=== PATIENT | female | born 1990 | race Caucasian/White ===

== ENCOUNTER → 2021-10-22 09:00 | Outpatient (BNVA) | payer MEDICAID, SELFPAY | PROVIDERS: Family Provider Family Medicine; Visit Provider Nurse Practitioner Women's Health | DX: N92.6 Irregular menstruation, unspecified (principal); O21.9 Vomiting of pregnancy, unspecified; Z3A.00 Weeks of gestation of pregnancy not specified | CPT/HCPCS: 81025 ==

== ENCOUNTER → 2021-11-05 09:25 | Outpatient (BNVA) | payer BC, MEDICAID, SELFPAY | PROVIDERS: Family Provider Family Medicine; Visit Provider Obstetrics & Gynecology | DX: Z34.90 Encounter for supervision of normal pregnancy, unspecified, unspecified trimester (principal) | CPT/HCPCS: 80307; 84315; 85027; 86592; 86762; 86803; 86850; 86900; 87086; 87340 ==

== ENCOUNTER → 2021-11-18 09:05 | Outpatient (BNVA) | payer BC, MEDICAID, SELFPAY | PROVIDERS: Family Provider Family Medicine; Visit Provider Obstetrics & Gynecology | DX: Z34.90 Encounter for supervision of normal pregnancy, unspecified, unspecified trimester (principal) | CPT/HCPCS: 84315; 87491; 87591; 87624 ==

== ENCOUNTER 2022-02-10 10:08 | Outpatient (CLI) | payer BC, MEDICAID, SELFPAY ==
--- NOTE | 2022-02-10 10:00 | US_ITS ---
WS: [id number] LIMITED OBSTETRICAL ULTRASOUND HISTORY: Z36.2 - Encounter for other screening follow-up COMPARISON: 10/31/2021 Presentation: Cephalic. Cervix: Closed and normal length. Placenta: Anterior, no previa or abruption. Grade: 1 HEART: heart rate was not obtained. Four-chamber heart and activity was noted on cine loops. Ou tflow tract. Negative. measurements: BPD = 5.7 cm = 23w4d HC = 21.5 cm = 23w4d AC = 18.8 cm = 23w4d FL = 4.1 cm = 23w3d FRANCY: 14.0 cm EFW: 603 g; 52nd %. AGA by ultrasound: 23w4d SCOTT by ultrasound: 06/05/2022 As compared to the first trimester ultrasound the fetus is measuring 10 days smaller than expected. Limited profile. US/[place] [id number] IMPRESSION: 1. Single intrauterine gestation of 23 weeks 4 days with an EDC of 06/05/2022. No growth asymmetry. 2. No cardiac activity or M-mode tracing was performed on this examination. Re altime cine loop does demonstrate normal cardiac activity.
== END 2022-02-10 10:09 | disposition home or self-care (01) ==
LOC: RAD 10:09
PROVIDERS: Family Provider Family Medicine; Visit Provider Obstetrics & Gynecology
DX: Z36.2 Encounter for other antenatal screening follow-up (principal); Z3A.23 23 weeks gestation of pregnancy
CPT/HCPCS: 76805; 76816

== ENCOUNTER → 2022-03-16 08:50 | Outpatient (BNVA) | payer BC, MEDICAID, SELFPAY | PROVIDERS: Family Provider Family Medicine; Visit Provider Obstetrics & Gynecology | DX: Z34.90 Encounter for supervision of normal pregnancy, unspecified, unspecified trimester (principal) | CPT/HCPCS: 82950; 84315; 85025 ==

== ENCOUNTER → 2022-04-27 08:39 | Outpatient (BNVA) | payer BC, MEDICAID, SELFPAY | PROVIDERS: Family Provider Family Medicine; Visit Provider Obstetrics & Gynecology | DX: O09.899 Supervision of other high risk pregnancies, unspecified trimester (principal); Z14.1 Cystic fibrosis carrier; Z30.2 Encounter for sterilization | CPT/HCPCS: 84315; 85025 ==

== ENCOUNTER → 2022-05-11 08:41 | Outpatient (BNVA) | payer BC, MEDICAID, SELFPAY | PROVIDERS: Family Provider Family Medicine; Visit Provider Obstetrics & Gynecology | DX: Z34.90 Encounter for supervision of normal pregnancy, unspecified, unspecified trimester (principal) | CPT/HCPCS: 84315; 87081 ==

== ENCOUNTER → 2022-05-18 09:20 | Outpatient (BNVA) | payer BC, MEDICAID, SELFPAY | PROVIDERS: Family Provider Family Medicine; Visit Provider Obstetrics & Gynecology | DX: Z34.90 Encounter for supervision of normal pregnancy, unspecified, unspecified trimester (principal) | CPT/HCPCS: 84315; 88304 ==

== ENCOUNTER 2022-05-29 19:15 | Outpatient (CLI) | payer BC, MEDICAID, SELFPAY ==
[2022-05-29 19:30] VITALS: BP 121/75; PULSE 90
[2022-05-29 19:38] VITALS: BMI 29.6
[2022-05-29 19:40] VITALS: RESP 16
[2022-05-29 19:48] LABS: Actim Prom Negative
[2022-05-29 19:55] LABS: Bilirubin Urine 1+ (Negative); Blood Urine Neg (Negative); Glucose Urine UA Norm (Normal); Ketones Urine 3+ (Negative); Leukocyte Esterase Urine 2+ (Negative); Nitrate Urine Negative (Negative); Protein Urine Neg (Negative); RBC Urine 0-4 /hpf (0-2); Specific Gravity, Urine 1.025 (1.005-1.030); Urine Appearance Hazy (CLEAR); Urine Color Yellow (Yellow); Urobilinogen Urine Norm (Negative); pH Urine 5 (5-7)
[2022-05-29 19:56] LABS: Add Urine Culture? Yes; Bacteria Urine 1+ /hpf; Squamous Epithelial Cell Urine 40-55 /hpf (0-5)
[2022-05-29] MEDS: dextrose 5%-lactated ringers 1,000 ML 999 ML IV ×2 (20:08→20:31)
[2022-05-29 21:02] VITALS: BP 110/58; PULSE 95
[2022-05-29 21:30] LABS: Glucose Urine UA 4+ (Normal); Ketones Urine 2+ (Negative); Specific Gravity, Urine 1.015 (1.005-1.030); Urine Appearance Clear (CLEAR); Urine Color Yellow (Yellow); pH Urine 6 (5-7)
[2022-05-29 21:32] LABS: Add Urine Culture? No; Bilirubin Urine Neg (Negative); Blood Urine Neg (Negative); Leukocyte Esterase Urine Negative (Negative); Nitrate Urine Negative (Negative); Protein Urine Neg (Negative); RBC Urine 0-4 /hpf (0-2); Urobilinogen Urine Norm (Negative)
== END 2022-05-29 21:45 | disposition home or self-care (01) ==
LOC: OPOB 19:21 → OBGYN 19:22
PROVIDERS: Family Provider Family Medicine; Visit Provider Obstetrics & Gynecology
DX: O26.899 Other specified pregnancy related conditions, unspecified trimester (principal); Z3A.00 Weeks of gestation of pregnancy not specified; R10.9 Unspecified abdominal pain
CPT/HCPCS: 36415; 59025; 81001; 84112; 87086; 99211; J7121

== ENCOUNTER 2022-06-02 22:20 | Inpatient (IN) | payer BC, MEDICAID, SELFPAY ==
[2022-06-02] VITALS (7 sets, daily range): BP systolic 93–107; BP diastolic 53–67; PULSE 92–109; RESP 16; TEMP 36.7; BMI 30.2
[2022-06-02 14:34] LABS: Basophils % 0.4 %; Eosinophils # 0.1 10^3/uL (0.0-0.8); Eosinophils % 1.3 %; Hematocrit 32.4 % (37.0-47.0); Hemoglobin 10.6 g/dL (11.5-15.3); Lymphocytes # 1.8 10^3/uL (0.8-4.8); Lymphocytes % 16.2 %; Mean Corpuscular HGB Conc 32.7 g/dL (30.0-36.0); Mean Corpuscular Hemoglobin 29.2 pg (28.0-34.0); Mean Corpuscular Volume 89.3 fl (81-99); Mean Platelet Volume 11.3 fL (7.4-10.4); Monocytes # 0.6 10^3/uL (0.2-0.9); Monocytes % 5.4 %; Neutrophils # 8.41 10^3/uL (1.8-7.7); Neutrophils % 75.8 %; Nucleated Red Blood Cells % 0 %; Platelet Count 304 10^3/cmm (130-400); Red Blood Count 3.63 10^6/uL (4.1-5.3); Red Cell Distribution Width 13.2 % (12.1-15.1); White Blood Count 11.1 10^3/uL (4.0-10.0)
[2022-06-02] MEDS: dextrose 5%-lactated ringers 1,000 ML 999 ML IV (23:20)
[2022-06-02] MEDS: oxytocin 30 UNIT/500 ML BAG IV (23:50)
[2022-06-03] VITALS (78 sets, daily range): BP systolic 86–132; BP diastolic 50–76; PULSE 68–120; RESP 16–17; O2SAT 99
[2022-06-03] MEDS: dextrose 5%-lactated ringers 1,000 ML 125 ML IV (03:48)
[2022-06-03] MEDS: fentaNYL 50 mcg/mL INJ 2mL IVP ×4 (07:02→10:40)
[2022-06-03] MEDS: lactated ringers 1,000 ML 999 ML IV (11:25)
--- NOTE | 2022-06-03 11:27 | PM.OPHPUD ---
Labor & Delivery H&P Update Date of Procedure: June 03, 2022 Date H&P Performed: 06/01/22 H&P update information: I have reviewed H&P completed within last 30 days, I have examined patient prior to procedure and No changes to prior documentation Admission Diagnosis: Related Problem List Diagnoses (1) Request for sterilization: (2) Supervision of normal :
[2022-06-03] MEDS: miSOPROStol 200 mcg Tablet 800 MCG PR (11:57)
--- NOTE | 2022-06-03 12:20 | PM.DELIVERY ---
Delivery Note: Date of delivery: June 03, 2022 Pre-delivery diagnoses: iup@ 39 weeks 4 days Post-delivery diagnoses: same-delivered Procedure: Delivering Physician: Senait Estimated blood loss (mL): 100 Findings: term male in the cephalic presentation Pre-Delivery Course: The patient was admitted for induction of labor at term. She received pitocin until she was having a regular contraction pattern. She had AROM and progressed to complete cervical dilation. Pitocin was stopped and she began to push. Delivery: The patient had complete cervical dilation and began to push. The head delivered in the MOJGAN position over an intact perineum under no anesthesia. The nose and mouth were bulb suctioned. The shoulders and body delivered atraumatically. The baby was placed onto the mother's abdomen. The cord was clamped and cut. Cord blood was obtained. The placenta delivered spontaneously. It was inspected and found to be intact. Inspection of the perineum revealed no laceration and no repair required. Estimated blood loss 100 mL. Apgars on baby were 8 at 1 minute and 9 at 5 minutes. Weight of baby is 9 pounds 12 ounces. Mother and baby were stable post delivery. History History History 4 Term 3 0 Miscarriages/Ectopic 0 Living Children 3 Coding Level of Care Code Acute [employer] Receiving [employer]her for Chg Sabrina
[2022-06-03] MEDS: ondansetron 2 mg/ML SDV 2 mL 4 MG IVP (13:09)
[2022-06-03] MEDS: benzocaine-menthol 78 gm Canister 1 SPRAY TOPICAL (14:04)
[2022-06-03] MEDS: lanolin oint 7 gm 1 APPLIC TOPICAL (14:05)
[2022-06-03] MEDS: ibuprofen 800 mg tablet PO ×2 (14:52→20:05)
[2022-06-03] MEDS: docusate sodium 100 mg Capsule PO (20:06)
[2022-06-04 00:09] LABS: Hematocrit 23.7 % (37.0-47.0); Hemoglobin 7.8 g/dL (11.5-15.3); Mean Corpuscular HGB Conc 32.9 g/dL (30.0-36.0); Mean Corpuscular Hemoglobin 29.8 pg (28.0-34.0); Mean Corpuscular Volume 90.5 fl (81-99); Platelet Count 296 10^3/cmm (130-400); Red Blood Count 2.62 10^6/uL (4.1-5.3); Red Cell Distribution Width 13.6 % (12.1-15.1); White Blood Count 13.2 10^3/uL (4.0-10.0)
[2022-06-04 02:25] VITALS: BP 99/53; PULSE 71
[2022-06-04 03:55] VITALS: BP 95/59; PULSE 75
--- NOTE | 2022-06-04 08:06 | PM.DCS ---
Discharge Providers Date of Admission: 06/02/22 22:20 Date of Discharge: June 04, 2022 Attending Provider at Admission: Ava Sapp MD Attending Provider at Discharge: Ava Sapp MD Diagnoses at Discharge Discharge Diagnosis (1) Request for sterilization: Status: Acute (2) Supervision of normal : Status: Acute Reason for Visit Reason for Visit: induction Hospital Course Hospital Course The patient was admitted for induction at term. She had spontaneous delivery of a term male . She did well and was ready for discharge on day #1 Physical Exam Narrative: The patient is doing well. No concerns today. Const: COMMON NORMALS: no acute distress, average body habitus, patient oriented x3, no limitations, healthy appearing, alert and well nourished GENERAL APPEARANCE: cooperative, comfortable, well kempt and well developed ORIENTATION/CONSCIOUSNESS: Yes awake, Yes oriented to person, Yes oriented to place and Yes oriented to time Resp: COMMON NORMALS: normal respiratory effort EFFORT & INSPECTION: Yes able to speak in complete sentences GI: COMMON NORMALS: Soft to palpation and non-tender PALPATION: Yes Soft to palpation Extremity: COMMON NORMALS: no calf tenderness Neuro: COMMON NORMALS: patient oriented x3 SENSORIUM/ORIENTATION: Yes alert, Yes oriented to person, Yes oriented to place and Yes oriented to time Psych: COMMON NORMALS: mental status grossly normal, Normal thought process present, cooperative, normal affect and speech normal APPEARANCE: Yes well kempt SPEECH: Yes normal speech THOUGHT PROCESS: Normal thought process present Discharge Data Studies Completed and Pending Laboratory Results WBC 13.2 10^3/uL (4.0-10.0) H 06/03/22 23:56 RBC 2.62 10^6/uL (4.1-5.3) L 06/03/22 23:56 Hgb 7.8 g/dL (11.5-15.3) L 06/03/22 23:56 Hct 23.7 % (37.0-47.0) L 06/03/22 23:56 MCV 90.5 fl (81-99) 06/03/22 23:56 MCH 29.8 pg (28.0-34.0) 06/03/22 23:56 MCHC 32.9 g/dL (30.0-36.0) 06/03/22 23:56 RDW 13.6 % (12.1-15.1) 06/03/22 23:56 Plt Count 296 10^3/cmm (130-400) 06/03/22 23:56 MPV 11.0 fL (7.4-10.4) H 06/03/22 23:56 Neut % (Auto) 75.8 % 06/02/22 14:22 Lymph % (Auto) 16.2 % 06/02/22 14:22 [place] % (Auto) 5.4 % 06/02/22 14:22 Eos % (Auto) 1.3 % 06/02/22 14:22 Baso % (Auto) 0.4 % 06/02/22 14:22 Neut # (Auto) 8.41 10^3/uL (1.8-7.7) H 06/02/22 14:22 Lymph # (Auto) 1.8 10^3/uL (0.8-4.8) 06/02/22 14:22 [place] # (Auto) 0.6 10^3/uL (0.2-0.9) 06/02/22 14:22 Eos # (Auto) 0.1 10^3/uL (0.0-0.8) 06/02/22 14:22 Baso # (Auto) 0.0 10^3/uL (0.0-0.1) 06/02/22 14:22 Nucleated RBC % (auto) 0 % 06/02/22 14:22 Nucleated RBCs # 0.0 /100WBC 06/02/22 14:22 Vitals Last Vital Signs Temp 98.1 F 06/02/22 23:02 Pulse 75 06/04/22 03:55 Resp 16 06/03/22 23:00 BP 95/59 06/04/22 03:55 Pulse Ox 99 06/03/22 07:02 O2 Del Method 06/03/22 06:33 Discharge Plan Discharge Patient Disposition: Home Condition: Stable Prescriptions: Continued prenat.vits,bhavna,tfw-phpg-ryvri Tablet 1 tab PO DAILY ferrous sulfate 27 mg iron tablet 27 mg PO BID Discharge Orders: Discharge Order (Routine); Ordered 06/04/22 Ordered By: Ava Sapp Referrals: Ava Sapp MD [Physician] - 06/22/22 1:45 pm (Your 2 week appointment is scheduled for 06/22/2022 at 1:45pm Your 6 week appointment is scheduled for 07/22/2022 at 1:15pm) Patient Instructions: Depression (DC), Bleeding (DC), Preeclampsia and Eclampsia After Delivery (GEN), Hemorrhage (DC), OB Discharge Report, OB Food/Drug Interaction Guide, OB Care at Home, Opioid Safety, OB Home Care, OB Vaginal Deliveries - [facility] Discharge Attestations Time Spent in Discharge Care*: less than 30 min Quality Metrics Clinical Quality Measures [ No reported AMI, CVA or VTE this stay] Coding Level of Care Code Acute Chg FW DC note Diagnoses Request for sterilization Z30.2 Supervision of normal Z34.90
[2022-06-04] MEDS: prenatal vitamin Capsule 1 CAP PO (09:33)
[2022-06-04] MEDS: ibuprofen 800 mg tablet PO (09:34)
[2022-06-04] MEDS: docusate sodium 100 mg Capsule PO (09:34)
[2022-06-04 09:36] VITALS: BP 95/51; PULSE 113
[2022-06-04 09:56] VITALS: TEMP 36.1
[2022-06-04 13:48] VITALS: BP 98/58; PULSE 100
[2022-06-04 14:00] VITALS: BP 98/58; PULSE 100
== END 2022-06-04 14:20 | disposition home or self-care (01) | DRG 807 ==
LOC: OPOB 06-03 02:16 → OBGYN 06-03 02:16
PROVIDERS: Admitting Provider Obstetrics & Gynecology; Family Provider Family Medicine; Visit Provider Obstetrics & Gynecology
DX: O80 Encounter for full-term uncomplicated delivery (principal); Z37.0 Single live birth; Z3A.39 39 weeks gestation of pregnancy; Z14.1 Cystic fibrosis carrier
CPT/HCPCS: 36415; 59025; 59409; 85025; 85027; 96374; 96376; 99211; J2405; J2590; J3010; J7120; J7121

== ENCOUNTER 2022-07-22 06:04 | Day surgery (SDC) | payer BC, MEDICAID, SELFPAY ==
[2022-07-21 09:27] VITALS: BMI 25.6
[2022-07-22] VITALS (13 sets, daily range): BP systolic 95–106; BP diastolic 52–64; PULSE 72–90; RESP 14–18; TEMP 36.4–36.7; O2SAT 92–100
[2022-07-22 06:30] LABS: OR HCG Qualitative Urine Negative (Negative)
[2022-07-22] MEDS: phenazopyridine 100 mg Tablet 200 MG PO (06:35)
[2022-07-22] MEDS: acetaminophen 1,000 MG/100 ML PIGGYBACK 400 MG IV (06:35)
[2022-07-22] MEDS: sodium chloride 0.9% 1,000 ML 30 ML IV (06:35)
[2022-07-22] MEDS: CELEcoxib 200 mg Capsule 400 MG PO (06:35)
[2022-07-22] MEDS: gabapentin 300 mg Capsule PO (06:35)
--- NOTE | 2022-07-22 06:42 | ANES.PREANE2 ---
Pre-Anesthetic Assessment Height/Weight: Height 1.57 m Weight 63.503 kg O2 Del Method 07/22/22 06:24 Preop Diagnosis: desires sterilization Operation Date: 07/22/22 07:00 Proposed Procedures p Laparoscopic bilateral salpingectomy 69524 ,Z30.2(Bilateral) - Ava Sapp MD Familial anesthetic complications: none Last intake: Intake Last Liquid Date 07/21/22 Last Liquid Time 22:00 Last Solid Date 07/21/22 Last Solid Time 18:30 Social No alcohol and No tobacco Airway Submandibular: within normal limits Cervical ROM: within normal limits Mallampati: Class I Dentition: full Pulmonary None reported CV/HEM None reported None reported Hepatic None reported GI None reported Metabolic None reported Musc/skel None reported Neuropsych None reported Anesthetic Plan ASA status: 1 Anesthesia: General Medications/Allergies Home Medications Medication Instructions Recorded Confirmed Last Taken Type prenat.vits,bhavna,jhb-avsy-ufisu 1 tab PO DAILY 10/22/21 07/22/22 07/21/22 History Allergies Allergy/AdvReac Type Severity Reaction Status Date / Time No Known Allergies Allergy Verified 06/22/22 13:45 Current Medications Generic Name Dose Route Start Last Admin Trade Name Freq PRN Reason Stop Dose Admin Sodium Chloride 1,000 mls @ 30 mls/hr 07/22/22 06:15 07/22/22 06:35 Sodium Chloride 0.9% IV 07/23/22 06:14 30 mls/hr .Q24H MILY Administration PFSH Anesthesia Medical History No pertinent past medical history Denies diabetes, asthma, hypertension, seizures, DVT/PE PMD: None Surgical History No pertinent past surgical history Family History Grandfather Diabetes Paternal Hypertension Paternal Stroke Maternal Denies family history of Colon cancer Ovarian cancer Heart disease Hypercholesteremia Breast cancer Uterine cancer Thyroid disease Data Anesthesia 07/22/22 06:58 Cardiac Studies: Cardiac Event Monitor 04/04/20
--- NOTE | 2022-07-22 07:00 | W.PM.OPSUD ---
Surgery/Procedure H&P Update DATE OF PROCEDURE: July 22, 2022 DATE H&P PERFORMED: 07/21/22 H&P UPDATE INFORMATION: I have reviewed H&P completed within last 30 days, I have examined patient prior to procedure and No changes to prior documentation PREOP DIAGNOSIS: desires sterilization PLANNED PROCEDURE: Operation Date: 07/22/22 07:00 Proposed Procedures p Laparoscopic bilateral salpingectomy 33115 ,Z30.2(Bilateral) - Ava Sapp MD Related Problem List Diagnoses (1) Request for sterilization:
[2022-07-22] MEDS: ceFAZolin 2,000 MG in sodium chloride 0.9% (plus) 50 ML 100 MG IV (07:06)
[2022-07-22 07:11] LABS: Hematocrit 32.1 % (37.0-47.0); Hemoglobin 9.7 g/dL (11.5-15.3)
--- NOTE | 2022-07-22 08:16 | P.OP_ITS ---
Operative Report Date of procedure: July 22, 2022 Pre-op diagnosis: Preop Diagnosis desires sterilization Post-op diagnosis: same Procedure done: laparoscopic bilateral salpingectomy Specimens removed/disposition: bilateral fallopian tubes to pathology Surgeon: Ava Sapp Anesthesia: General Estimated blood loss (mL): 2 IV fluids (mL): 1,000 Urine output (mL): 75 Complications: none Condition: stable Disposition: PACU Procedure: The patient was taken to the operating room where general anesthesia was administered and found to be adequate. She was prepped and draped in the normal sterile fashion in the dorsal lithotomy position in [facility]. A Almanza catheter was placed. A weighted speculum was placed into the vagina and the anterior lip of the cervix grasped with a single-tooth tenaculum. A [employer] uterine manipulator was placed. The gloves were changed and attention was turned to the laparoscopic portion of the case. A 5 mm infraumbilical incision was made. The 5 mm trocar was placed using the easy view trocar. Intra-abdominal placement was confirmed and CO2 gas was used to insufflate the abdomen. Using direct visualization and illumination of the abdominal wall, two 5 mm incisions were made low and lateral. One on the left and one on the right. The 5mm trochars were then placed under direct visualization. Using the uterine manipulator and the grasper, the fallopian tubes were identified. Using the laparoscopic cautery, the fallopian tube was clamped cauterized and cut. First on the right, then on the left. There was excellent hemostasis post removal of the bilateral tubes. Pictures were taken. All instruments were removed. The abdomen was desufflated. The incisions were closed with 4-0 Vicryl. 10 ml of 1/2% bupivicaine was used around the incisions. The patient tolerated the procedure well. Sponge lap and needle counts were correct x3. She was taken to the recovery room in stable condition.
--- NOTE | 2022-07-22 08:21 | PM.DCS ---
Discharge Providers Date of Admission: 07/22/22 Date of Discharge: July 22, 2022 Attending Provider at Discharge: Ava Sapp MD Diagnoses at Discharge Discharge Diagnosis (1) Request for sterilization: Status: Acute Hospital Course Hospital Course The patient was admitted for outpatient surgery. She did well postoperatively and was ready for discharge post recovery Physical Exam Urinary Catheter Management: Almanza: Cath Placed During This Visit: yes Urinary Catheter Date of Insertion: 07/22/22 Urinary Catheter Time of Insertion: 07:30 Discharge Data Studies Completed and Pending Pending at discharge Category Date Time Status ES surgery / GI images Routine Exams 07/22/22 06:26 Ordered Urine Culture Routine Lab 07/22/22 07:30 Received Pathology: Surgical [PTH] Routine Pth 07/22/22 07:47 Ordered Laboratory Results Hgb 9.7 g/dL (11.5-15.3) L 07/22/22 06:58 Hct 32.1 % (37.0-47.0) L 07/22/22 06:58 Urine HCG, Qual Negative (Negative) 07/22/22 06:13 Vitals Last Vital Signs Temp 97.5 F L 07/22/22 07:00 Pulse 77 07/22/22 07:00 Resp 16 07/22/22 07:00 BP 100/64 07/22/22 07:00 Pulse Ox 98 07/22/22 07:00 O2 Del Method 07/22/22 07:00 Discharge Plan Discharge Patient Disposition: Home Condition: Stable Prescriptions: New hydrocodone-acetaminophen 5-325 mg tablet 1 tab PO Q4H Qty: 30 0RF Continued prenat.vits,bhavna,ofb-slsq-gbjxy Tablet 1 tab PO DAILY Discharge Orders: Discharge Order (Routine); Ordered 07/22/22 Ordered By: Ava Sapp Referrals: Ava Sapp MD [Physician] - 07/30/22 8:30 am Patient Instructions: Hydrocodone/Acetaminophen (By mouth), Salpingectomy (DC), Post Anesthesia Care Discharge Attestations Time Spent in Discharge Care*: less than 30 min Quality Metrics Clinical Quality Measures [ No reported AMI, CVA or VTE this stay] Coding Level of Care Code Acute Chg FW DC note Diagnoses Request for sterilization Z30.2
[2022-07-22] MEDS: fentaNYL 50 mcg/mL INJ 2mL IVP (08:44)
[2022-07-22] MEDS: HYDROcodone-acetaminophen 5-325 mg Tablet 1 TAB PO (09:23)
--- NOTE | 2022-07-22 17:29 | ANE.PACU2 ---
Inpatient post-anesthesia follow up: Airway intact: Yes Vital signs: Temperature 98.0 F Pulse Rate 74 Respiratory Rate 16 Blood Pressure 101/62 Pulse Oximetry 97 Oxygen Delivery Me thod Room Air Oxygen Flow Rate 6 Fraction of Inspir ed Oxygen Hydration adequate: Yes Nausea and vomiting: No Pain level: 2 Mental status: Baseline
== END 2022-07-22 10:25 | disposition home or self-care (01) ==
PROVIDERS: Anesthesiology; Visit Provider Obstetrics & Gynecology
PROC: (CPT 58661; principal; 2022-07-22 07:00)
DX: Z30.2 Encounter for sterilization (principal)
CPT/HCPCS: 58661; 36415; 81025; 84703; 85014; 85018; 87086; 88302; J0131; J0690; J1100; J1200; J1885; J2250; J2370; J2405; J2704; J2710; J3010; J3490; J7030

== ENCOUNTER 2024-05-02 11:57 | Day surgery (SDC) | payer BC, MEDICAID, SELFPAY ==
[2024-05-02] VITALS (18 sets, daily range): BP systolic 92–121; BP diastolic 50–76; PULSE 62–100; RESP 14–18; TEMP 36.3–37.1; O2SAT 93–100
[2024-05-02 12:44] LABS: Basophils % 0.4 %; Eosinophils # 0.7 10^3/uL (0.0-0.8); Eosinophils % 6.5 %; Hematocrit 38.7 % (36-47); Lymphocytes # 1.2 10^3/uL (0.8-4.8); Lymphocytes % 11.8 %; Mean Corpuscular HGB Conc 33.1 g/dL (30-55); Mean Corpuscular Hemoglobin 30.6 pg (27-33); Mean Corpuscular Volume 92.6 fl (85-98); Mean Platelet Volume 10.4 fL (7.4-10.4); Monocytes # 0.8 10^3/uL (0.2-0.9); Monocytes % 7.8 %; Neutrophils # 7.36 10^3/uL (1.8-7.7); Neutrophils % 73.2 %; Nucleated Red Blood Cells % 0 %; Platelet Count 253 10^3/cmm (157-399); Red Blood Count 4.18 10^6/uL (3.85-5.65); Red Cell Distribution Width 12.9 % (12.1-15.1); White Blood Count 10.05 10^3/uL (3.29-11.43)
[2024-05-02 13:00] LABS: Alanine Aminotransferase 7 U/L (0-33); Albumin Level 4.4 g/dL (3.5-5.2); Alkaline Phosphatase 53 U/L (35-105); Anion Gap 15.3 (5-19); Aspartate Amino Transferase 10 U/L (0-32); Blood Urea Nitrogen 7 mg/dL (6-20); Calcium 8.6 mg/dL (8.5-10.5); Carbon Dioxide 25 mmol/L (22-29); Chloride 104 mmol/L (98-107); Creatinine Clr Calc Pharmacy 134.0229; Globulin 2.5 g/dL (1.3-4.6); Glucose 85 mg/dL (65-115); Lipase 21 U/L (13-60); Osmolality Calculated 287 mOsm/kg (285-295); Potassium 4.3 mmol/L (3.5-5.1); Sodium 140 mmol/L (136-145); Total Bilirubin 0.6 mg/dL (0.15-1.2); Total Protein 6.9 g/dL (6.6-8.7)
--- NOTE | 2024-05-02 15:16 | CTR_ITS ---
PROCEDURE INFORMATION: Exam: CT Abdomen And Pelvis With Contrast Exam date and time: 05/02/2024 4:25 PM Age: 33 years old Clinical indication: Abdominal pain; Additional info: Rlq pain TECHNIQUE: Imaging protocol: Computed tomography of the abdomen and pelvis with contrast. Radiation optimization: All CT scans at this facility use at least one of these dose optimization techniques: automated exposure control; mA and/or kV adjustment per patient size (includes targeted exams where dose is matched to clinical indication); or iterative reconstruction. Contrast material: [id number]; Contrast volume: 100 ml; Contrast route: INTRAVENOUS (IV); COMPARISON: No relevant prior studies available. RADIATION DOSE METRICS: Total DLP (mGy-cm): 360 FINDINGS: Lungs: Lung bases are clear. Liver: The liver is normal. Gallbladder and biliary ducts: The gallbladder is normal. There is no biliary dilation. Pancreas: The pancreas is unremarkable. Spleen: The spleen is unremarkable. Adrenal glands: The adrenal glands are unremarkable. Kidneys and ureters: The kidneys are unremarkable. No hydronephrosis or stones. No ureteral dilation. Stomach and bowel: The stomach is nondistended, limiting assessment of wall thickness. The small bowel is nondilated. The colon is unremarkable. Appendix: The appendix is mildly enlarged measuring 8 mm diameter. The appendiceal wall is diffusely thickened and hyperemic. No appendicolith. There is periappendiceal fat stranding and fascial thickening. Intraperitoneal space: There is no free air or significant intraperitoneal free fluid. Vasculature: The aorta is unremarkable. There is no aneurysm. The portal, splenic and superior mesenteric veins are patent. Lymph nodes: There is no lymphadenopathy in the retroperitoneum, mesentery, pelvis or inguinal regions. Urinary bladder: The urinary bladder is unremarkable. Reproductive: The uterus is unremarkable. There is no adnexal mass or large cyst. Bones/joints: Bones are unremarkable. Soft tissues: There is periappendiceal fat stranding and fascial thickening. The abdominal wall is intact. CT/CT abdomen pelvis w con* [id number] IMPRESSION: Acute appendicitis. No sign of perforation.
--- NOTE | 2024-05-02 15:17 | ED_ITS ---
HPI - Abdominal Pain 2 General: Chief Complaint: Abdominal Pain Stated Complaint: R. side abd pain Time Seen by Provider: 05/02/24 15:10 Source: patient Mode of arrival: ambulatory Limitations: no limitations History of Present Illness: 33-year-old female states she been havin g right lower quadrant abdominal pain since yesterday states been a sharp pain she saw her PCP had seen her peers concerned she may have appendicitis. States pain is currently a 6 out of 10 denies any vomiting or diarrhea denies any dysuria. She denies any fevers Associated Symptoms: Denies chills, diarrhea, dysuria, fever(s), nausea and vomiting Related Data Home Medications Medication Instructions Recorded Confirmed prenat.vits,bhavna,kxd-tkhf-ahrht 1 tab PO DAILY 10/22/21 08/03/22 Allergies Allergy/AdvReac Type Severity Reaction Status Date / Time No Known Allergies Allergy Verified 08/03/22 08:00 Review of Systems 2 Const: Denies: fever(s), chills, body aches or change in appetite ENMT: Denies: throat pain or dental pain Card: Denies: chest pain Resp: Denies: dyspnea GI: Reports: abdominal pain; Denies: nausea, vomiting or diarrhea : Denies: dysuria Musc: Denies: neck pain or back pain Skin/Breast: Denies: rash Neuro: Denies: headache(s) PFSH ED 2 PFSH: Medical History Request for sterilization No pertinent past medical history Denies diabetes, asthma, hypertension, seizures, DVT/PE PMD: None Surgical History No pertinent past surgical history Family History Grandfather Diabetes Paternal Hypertension Paternal Stroke Maternal Denies family history of Colon cancer Ovarian cancer Heart disease Hypercholesteremia Breast cancer Uterine cancer Thyroid disease Social History Substance/Drug Use: never Physical Exam 2 Const: COMMON NORMALS: no acute distress, patient oriented x3 and healthy appearing HENMT: COMMON NORMALS: normocephalic and atraumatic HEAD & SCALP: n ormocephalic and atraumatic Neck/C-Spine: COMMON NORMALS: full ROM and supple Chest: COMMONS NORMALS: normal inspection of the chest and normal palpation of entire chest wall Resp: COMMON NORMALS: normal respiratory effort Cardio: COMMON NORMALS: regular rate, regular rhythm and No murmurs present (Cardio) RATE: regular rate RHYTHM: regular rhythm GI: COMMON NORMALS: Normal to inspection, nondistended, normoactive bowel sounds present, Soft to palpation and no masses PALPATION: Yes Soft to palpation and Yes Tenderness to palpation present (GI) Details: RLQ Extremity: COMMON NORMALS: normal to inspection and full ROM Neuro: COMMON NORMALS: patient oriented x3, moves all extremities and no focal motor deficits Psych: COMMON NORMALS: mental status grossly normal, Normal thought process present and cooperative THOUGHT PROCESS: Normal thought process present Skin: COMMON NORMALS: no rashes or lesions noted and no wounds GENERAL SKIN EXAM: no rashes or lesions noted Course 2 Vital Signs: Vital signs: Vital Signs Temperature 97.9 F 05/02/24 12:04 Pulse Rate 87 05/02/24 17:00 Respiratory Rate 14 05/02/24 17:00 Blood Pressure 103/65 05/02/24 17:00 Pulse Oximetry 97 05/02/24 17:00 Oxygen Delivery Me thod Room Air 05/02/24 16:08 MDM - Abdominal Pain Medical Decision Making Patient presents with appendicitis I spoke to surgeon on-call who can take patient to the OR at this time. Medical Records I reviewed the patient's medical records. Lab Data I reviewed the patient's lab results. 05/02/24 12:34 05/02/24 12:34 Labs/Radiology: Radiology Impressions Abdomen/Pelvis CT 05/02/24 15:16 IMPRESSION: Acute appendicitis. No sign of perforation. ADDENDUM: 05/02/24 [id number] THIS REPORT CONTAINS FINDINGS THAT MAY BE CRITICAL TO PATIENT CARE. The findings and recommendations were personally verbally communicated via telephone conference with KELECHI LANZA at 5:37 PM CDT on 05/02/2024. The findings were acknowledged and understood. Laboratory Results WBC 10.05 10^3/uL (3.29-11.43) 05/02/24 12:34 RBC 4.18 10^6/uL (3.85-5.65) 05/02/24 12:34 Hgb 12.80 g/dL (11.27-16.99) 05/02/24 12:34 Hct 38.7 % (36-47) 05/02/24 12:34 MCV 92.6 fl (85-98) 05/02/24 12:34 MCH 30.6 pg (27-33) 05/02/24 12: MCHC 33.1 g/dL (30-55) 05/02/24 12:34 RDW 12.9 % (12.1-15.1) 05/02/24 12:34 Plt Count 253 10^3/cmm (157-399) 05/02/24 12:34 MPV 10.4 fL (7.4-10.4) 05/02/24 12:34 Neut % (Auto) 73.2 % 05/02/24 12:34 Lymph % (Auto) 11.8 % 05/02/24 12:34 [place] % (Auto) 7.8 % 05/02/24 12:34 Eos % (Auto) 6.5 % 05/02/24 12:34 Baso % (Auto) 0.4 % 05/02/24 12:34 Neut # (Auto) 7.36 10^3/uL (1.8-7.7) 05/02/24 12:34 Lymph # (Auto) 1.2 10^3/uL (0.8-4.8) 05/02/24 12:34 [place] # (Auto) 0.8 10^3/uL (0.2-0.9) 05/02/24 12:34 Eos # (Auto) 0.7 10^3/uL (0.0-0.8) 05/02/24 12:34 Baso # (Auto) 0.0 10^3/uL (0.0-0.1) 05/02/24 12:34 Nucleated RBC % (auto) 0 % 05/02/24 12:34 Nucleated RBCs # 0.0 /100WBC 05/02/24 12:34 Sodium 140 mmol/L (136-145) 05/02/24 12:34 Potassium 4.3 mmol/L (3.5-5.1) 05/02/24 12:34 Chloride 104 mmol/L (98-107) 05/02/24 12:34 Carbon Dioxide 25 mmol/L (22-29) 05/02/24 12:34 Anion Gap 15.3 (5-19) 05/02/24 12:34 BUN 7 mg/dL (6-20) 05/02/24 12:34 Creatinine 0.5 mg/dL (0.5-0.9) 05/02/24 12:34 GFR Calculation 143.0 mL/min (90-130) H 05/02/24 12:34 Glucose 85 mg/dL (65-115) 05/02/24 12:34 Calculated Osmolality 287 mOsm/kg (285-295) 05/02/24 12:34 Calcium 8.6 mg/dL (8.5-10.5) 05/02/24 12:34 Total Bilirubin 0.6 mg/dL (0.15-1.2) 05/02/24 12:34 AST 10 U/L (0-32) 05/02/24 12:34 ALT 7 U/L (0-33) 05/02/24 12:34 Alkaline Phosphatase 53 U/L (35-105) 05/02/24 12:34 Total Protein 6.9 g/dL (6.6-8.7) 05/02/24 12:34 Albumin 4.4 g/dL (3.5-5.2) 05/02/24 12:34 Globulin 2.5 g/dL (1.3-4.6) 05/02/24 12:34 Lipase 21 U/L (13-60) 05/02/24 12:34 Urine Color Yellow (Yellow) 05/02/24 15:20 Urine Appearance Clear (CLEAR) 05/02/24 15:20 Urine pH 6.5 (5-7) 05/02/24 15:20 Ur Specific [place] 1.027 (1.005-1.030) 05/02/24 15:20 Urine Protein Trace (Negative) A 05/02/24 15:20 Urine Glucose (UA) Negative (Normal) 05/02/24 15:20 Urine Ketones 1+ (Negative) H 05/02/24 15:20 Urine Blood Negative (Negative) 05/02/24 15:20 Urine Nitrate Negative (Negative) 05/02/24 15:20 Urine Bilirubin Negative (Negative) 05/02/24 15:20 Urine Urobilinogen 1.0 mg/dL (Negative) 05/02/24 15:20 Ur Leukocyte Esterase 1+ (Negative) A 05/02/24 15:20 Urine RBC 6-10 /hpf (0-2) 05/02/24 15:20 Urine WBC 0-5 /hpf (0-5) 05/02/24 15:20 Ur Squamous Epith Cells 6-10 /hpf (0-5) 05/02/24 15:20 Amorphous Sediment Not Reportable 05/02/24 15:20 Urine Bacteria 3+ /hpf (NONE) H 05/02/24 15:20 Hyaline Casts 1.65 /lpf 05/02/24 15:20 All radiology interpretation(s) finalized by discharge Discharge Plan Discharge Patient Disposition: Admitted As Inpatient Clinical Impression: Acute appendicitis Condition: Stable Prescriptions: No Action prenat.vits,bhavna,pow-xfuv-bgsne Tablet 1 tab PO DAILY Patient Instructions: Appendicitis (GEN) Coding Level of Care Code ED [employer] for Francisco Bennett
[2024-05-02] MEDS: ondansetron 2 mg/ML SDV 2 mL 4 MG IVP (15:21)
[2024-05-02] MEDS: morphine 4 mg/mL SDV 1 mL IVP ×2 (15:22→18:16)
[2024-05-02 15:32] LABS: Bilirubin Urine Negative (Negative); Blood Urine Negative (Negative); Glucose Urine UA Negative (Normal); Ketones Urine 1+ (Negative); Leukocyte Esterase Urine 1+ (Negative); Nitrate Urine Negative (Negative); Protein Urine Trace (Negative); Specific Gravity, Urine 1.027 (1.005-1.030); Urine Appearance Clear (CLEAR); Urine Color Yellow (Yellow); pH Urine 6.5 (5-7)
[2024-05-02 15:35] LABS: Add Urine Microscopic? YES; Bacteria Urine 3+ /hpf; Hyaline Casts Urine 1.65 /lpf; WBC Urine 0-5 /hpf (0-5)
[2024-05-02 15:39] LABS: Add Urine Culture? Yes
[2024-05-02] MEDS: iohexol 350 mg/mL 500 mL Btl (per mL) IV (16:30)
[2024-05-02] MEDS: piperacillin-tazobactam 3.375 GM in sodium chloride 0.9% (plus) 50 ML IV (17:58)
--- NOTE | 2024-05-02 18:35 | P.HP_ITS ---
Providers/Chief Complaint 2 Chief Complaint: R. side abd pain History of Present Illness Hillary Gaxiola is a 33 year old female presented to the hospital with 1 day history of abdominal pain. She reports that the pain is in her right lower quadrant of her abdomen and does not radiate. Palpation makes pain worse. Nothing seems to make the pain better. She reports nausea but denies any emesis. Denies any diarrhea, constipation, hematochezia and/or melena. Her last oral intake was yesterday. CT of the abdomen pelvis shows acute appendicitis Review of Systems 2 General: Reports: 10 or more systems reviewed and unremarkable except in HPI and below Medications/Allergies Home Medications Medication Instructions Recorded Confirmed Last Taken Type prenat.vits,bhavna,nms-jeau-tryyu 1 tab PO DAILY 10/22/21 08/03/22 07/21/22 History Allergies Allergy/AdvReac Type Severity Reaction Status Date / Time No Known Allergies Allergy Verified 08/03/22 08:00 PFSH Acute 2 PFSH: Medical History Request for sterilization No pertinent past medical history Denies diabetes, asthma, hypertension, seizures, DVT/PE PMD: None Surgical History No pertinent past surgical history Family History Grandfather Diabetes Paternal Hypertension Paternal Stroke Maternal Denies family history of Colon cancer Ovarian cancer Heart disease Hypercholesteremia Breast cancer Uterine cancer Thyroid disease Social History Substance/Drug Use: never Vitals/I&O/Wt Last Vital Signs Temp 97.9 F 05/02/24 12:04 Pulse 89 05/02/24 18:00 Resp 16 05/02/24 18:16 BP 108/71 05/02/24 18:00 Pulse Ox 100 05/02/24 18:00 O2 Del Method Room Air 05/02/24 18:00 Weight last 48 hrs Weight 124 lb Physical Exam 2 Narrative: General : Patient is well developed , no acute distress, oriented x3 Head : Normal cephalic, a-traumatic. Ears : Pinnae and external canal are normal. Hearing is normal. Eyes : PERRLA, Sclera and injection are normal. No conjunctival discharge. Nose : Mucous membranes are without erythema. Throat : buccal mucosa is normal, gums are without significant recession or hypertrophy. Lungs : Equal chest rise bilaterally, no use of accessory muscles, trachea is midline. Cor : Rate and rhythm are normal. Abdomen : Soft, ND, tender palpation right lower quadrant, negative Rovsing's, no g/r/m Extremities : No edema, no cyanosis or clubbing, dorsalis pedis pulses are present bilaterally, non-tender to palpation of calves. Upper extremities are normal bilaterally. Back : non-tender to palpation, no CVA tenderness. Neuro : CN II - XII intact, Upper and lower extremities have equal and full strength Data 05/02/24 12:34 05/02/24 12:34 A&P Assessment and plan (1) Acute appendicitis: Plan Laparoscopic Appendectomy The risks and benefits of the procedure, including but not limited to, bleeding, infection, scar, numbness, pain, damage to surrounding structures, conversion to an open procedure, were explained to the patient. He is understanding of the risks and wishes to proceed. Antibiotics were given in the ER. Attestations 2 Medical Necessity Statement*: She is found, intraoperatively, to have mild appendicitis and the operation goes well, she may be discharged home tonight otherwise she will need to stay for at least 1 night of IV antibiotics and observation Coding Level of Care Code 00835 Diagnoses Acute appendicitis K35.80
--- NOTE | 2024-05-02 18:49 | P.ANESASSM_ITS ---
Pre-Anesthetic Assessment Height/Weight: Height 5 ft 2 in Weight 124 lb Temp Pulse Resp BP Pulse Ox O2 Del Method 98.7 F 89 18 106/69 97 Room Air 05/02/24 18:41 05/02/24 18:41 05/02/24 18:41 05/02/24 18:41 05/02/24 18:41 05/02/24 18:41 Preop Diagnosis: Acute cholecystitis Operation Date: 05/02/24 19:00 Proposed Procedures p Laparoscopic Appendectomy(Not Applicable) - Dat Flanagan DO Was Beta Charisse taken within 24 hours: N/A Was Clonidine taken within 24 hours: N/A Last intake: Solid food yesterday at noon Social No alcohol and No tobacco Exam alert, oriented x 3, clear to auscultation bilaterally and regular rate & rhythm Airway Submandibular: within normal limits Cervical ROM: within normal limits Mallampati: Class II Dentition: full Anesthetic Plan ASA status: 1E Anesthesia: General Other: No prior issues with anesthesia NPO since yesterday around noon Patient denies any cardiac or pulmonary issues Labs 05/02/2024 reviewed WBC 10.05, hemoglobin 12.8 Patient has prior Holter monitor in 2019. Sinus rhythm at that time METs greater than 4 Plan for GETA Medications/Allergies Home Medications Medication Instructions Recorded Confirmed Last Taken Type prenat.vits,bhavna,jmy-yhzi-nbohj 1 tab PO DAILY 10/22/21 08/03/22 07/21/22 History Allergies Allergy/AdvReac Type Severity Reaction Status Date / Time No Known Allergies Allergy Verified 08/03/22 08:00 [facility] Anesthesia Medical History Request for sterilization No pertinent past medical history Denies diabetes, asthma, hypertension, seizures, DVT/PE PMD: None Surgical History No pertinent past surgical history Family History Grandfather Diabetes Paternal Hypertension Paternal Stroke Maternal Denies family history of Colon cancer Ovarian cancer Heart disease Hypercholesteremia Breast cancer Uterine cancer Thyroid disease Social History Substance/Drug Use: never Data Anesthesia 05/02/24 12:34 05/02/24 12:34 Short CBC 05/02/24 Range/Units 12:34 WBC 10.05 (3.29-11.43) 10^3/uL Hgb 12.80 (11.27-16.99) g/dL Hct 38.7 (36-47) % MCV 92.6 (85-98) fl Plt Count 253 (157-399) 10^3/cmm Neut % (Auto) 73.2 % Neut # (Auto) 7.36 (1.8-7.7) 10^3/uL BMP 05/02/24 12:34 Sodium 140 Potassium 4.3 Chloride 104 Carbon Dioxide 25 BUN 7 Creatinine 0.5 Glucose 85 Calcium 8.6 Liver Function 05/02/24 Range/Units 12:34 Total Bilirubin 0.6 (0.15-1.2) mg/dL AST 10 (0-32) U/L ALT 7 (0-33) U/L Alkaline Phosphatase 53 (35-105) U/L Albumin 4.4 (3.5-5.2) g/dL Urine 05/02/24 Range/Units 15:20 Urine Color Yellow (Yellow) Urine Appearance Clear (CLEAR) Urine pH 6.5 (5-7) Ur Specific [place] 1.027 (1.005-1.030) Urine Protein Trace A (Negative) Urine Glucose (UA) Negative (Normal) Urine Ketones 1+ H (Negative) Urine Nitrate Negative (Negative) Urine Bilirubin Negative (Negative) Ur Leukocyte Esterase 1+ A (Negative) Urine RBC 6-10 (0-2) /hpf Urine WBC 0-5 (0-5) /hpf Cardiac Studies: 2 Cardiac Event Monitor 04/04/20
[2024-05-02] MEDS: lidocaine-epi 2% PF 1:200,000 20 mL SDV XX (19:10)
--- NOTE | 2024-05-02 19:28 | P.OP_ITS ---
Operative Report Date of procedure: May 02, 2024 Pre-op diagnosis: Acute appendicitis Post-op diagnosis: same Procedure done: Laparoscopic appendectomy Implants: none Specimens removed/disposition: Appendix Surgeon: Dat Flanagan DO Anesthesia: General and Local Estimated blood loss (mL): 5 Complications: None apparent Brief History: This is a very pleasant 33-year-old female who presented to the hospital with acute appendicitis. Laparoscopic appendectomy was indicated. The risks and benefits were explained and documented. Procedure: Patient was wheeled into the operative room and placed on the OR table in a supine position. Abdomen was inspected prepped and draped in usual sterile fashion. Time-out was performed and all present were in agreement. A 15 blade scalp was used to make a stab incision in the left upper quadrant and intra- abdominal insufflation was achieved using a Veress needle. After localizing the tissue incisions were made and a 12 millimeter trocar was placed into the umbilicus as well as a 5mm in the right lower quadrant and a 5 mm in the left lower quadrant . The appendix was identified and was mildly inflamed. I used the laparoscopic ligature to ligate the mesoappendix at the base. I then used 2 PDS endo-loops to snare the base of the appendix. I then used the laparoscopic ligature to ligate the appendix distally. The appendix was removed from the abdomen using an Endo-Catch bag through the umbilical incision. I examined the abdomen and no further pathology was identified. Hemostasis was noted. I then closed the umbilical site with a Abdi-Rosas and 0 Vicryl suture in a figure of 8 fashion. All ports removed. Skin was washed and dried. Incisions were closed with 4 O Vicryl in a subcuticular interrupted fashion. Skin glue was applied. Patient tolerated the procedure well.
--- NOTE | 2024-05-02 19:29 | PM.DCS ---
Discharge Providers Date of Discharge: May 02, 2024 Attending Provider at Discharge: Dat Flanagan DO Diagnoses at Discharge Discharge Diagnosis (1) Acute appendicitis: Status: Acute Reason for Visit Reason for Visit: R. side abd pain Hospital Course Hospital Course This is a very pleasant 33-year-old female presenting to the hospital with acute appendicitis. She underwent laparoscopic appendectomy and was discharged home in good condition with antibiotics and pain medicine the same day. Physical Exam Narrative: General : Patient is well developed , no acute distress, oriented x3 Head : Normal cephalic, a-traumatic. Ears : Pinnae and external canal are normal. Hearing is normal. Eyes : PERRLA, Sclera and injection are normal. No conjunctival discharge. Nose : Mucous membranes are without erythema. Throat : buccal mucosa is normal, gums are without significant recession or hypertrophy. Lungs : Equal chest rise bilaterally, no use of accessory muscles, trachea is midline. Cor : Rate and rhythm are normal. Abdomen : Soft, ND, appropriately tender, no g/r/m Extremities : No edema, no cyanosis or clubbing, dorsalis pedis pulses are present bilaterally, non-tender to palpation of calves. Upper extremities are normal bilaterally. Back : non-tender to palpation, no CVA tenderness. Neuro : CN II - XII intact, Upper and lower extremities have equal and full strength Discharge Data Studies Completed and Pending Completed Studies During Hospitalization Category Date Time Status CT abdomen pelvis w con* [id number] Stat Cat Scan 05/02/24 15:16 Completed Pending at discharge Category Date Time Status ES surgery / GI images Routine Exams 05/02/24 18:43 Ordered Urine Culture Stat Lab 05/02/24 15:20 Received Pathology: Surgical [PTH] Routine Pth 05/02/24 19:29 Ordered Radiology Impressions Abdomen/Pelvis CT 05/02/24 15:16 IMPRESSION: Acute appendicitis. No sign of perforation. ADDENDUM: 05/02/24 [id number] THIS REPORT CONTAINS FINDINGS THAT MAY BE CRITICAL TO PATIENT CARE. The findings and recommendations were personally verbally communicated via telephone conference with KELECHI LANZA at 5:37 PM CDT on 05/02/2024. The findings were acknowledged and understood. Laboratory Results WBC 10.05 10^3/uL (3.29-11.43) 05/02/24 12:34 RBC 4.18 10^6/uL (3.85-5.65) 05/02/24 12:34 Hgb 12.80 g/dL (11.27-16.99) 05/02/24 12:34 Hct 38.7 % (36-47) 05/02/24 12:34 MCV 92.6 fl (85-98) 05/02/24 12:34 MCH 30.6 pg (27-33) 05/02/24 12:34 MCHC 33.1 g/dL (30-55) 05/02/24 12:34 RDW 12.9 % (12.1-15.1) 05/02/24 12:34 Plt Count 253 10^3/cmm (157-399) 05/02/24 12:34 MPV 10.4 fL (7.4-10.4) 05/02/24 12:34 Neut % (Auto) 73.2 % 05/02/24 12:34 Lymph % (Auto) 11.8 % 05/02/24 12:34 [place] % (Auto) 7.8 % 05/02/24 12:34 Eos % (Auto) 6.5 % 05/02/24 12:34 Baso % (Auto) 0.4 % 05/02/24 12:34 Neut # (Auto) 7.36 10^3/uL (1.8-7.7) 05/02/24 12:34 Lymph # (Auto) 1.2 10^3/uL (0.8-4.8) 05/02/24 12:34 [place] # (Auto) 0.8 10^3/uL (0.2-0.9) 05/02/24 12:34 Eos # (Auto) 0.7 10^3/uL (0.0-0.8) 05/02/24 12:34 Baso # (Auto) 0.0 10^3/uL (0.0-0.1) 05/02/24 12:34 Nucleated RBC % (auto) 0 % 05/02/24 12:34 Nucleated RBCs # 0.0 /100WBC 05/02/24 12:34 Sodium 140 mmol/L (136-145) 05/02/24 12:34 Potassium 4.3 mmol/L (3.5-5.1) 05/02/24 12:34 Chloride 104 mmol/L (98-107) 05/02/24 12:34 Carbon Dioxide 25 mmol/L (22-29) 05/02/24 12:34 Anion Gap 15.3 (5-19) 05/02/24 12:34 BUN 7 mg/dL (6-20) 05/02/24 12:34 Creatinine 0.5 mg/dL (0.5-0.9) 05/02/24 12:34 GFR Calculation 143.0 mL/min (90-130) H 05/02/24 12:34 Glucose 85 mg/dL (65-115) 05/02/24 12:34 Calculated Osmolality 287 mOsm/kg (285-295) 05/02/24 12:34 Calcium 8.6 mg/dL (8.5-10.5) 05/02/24 12:34 Total Bilirubin 0.6 mg/dL (0.15-1.2) 05/02/24 12:34 AST 10 U/L (0-32) 05/02/24 12:34 ALT 7 U/L (0-33) 05/02/24 12:34 Alkaline Phosphatase 53 U/L (35-105) 05/02/24 12:34 Total Protein 6.9 g/dL (6.6-8.7) 05/02/24 12:34 Albumin 4.4 g/dL (3.5-5.2) 05/02/24 12:34 Globulin 2.5 g/dL (1.3-4.6) 05/02/24 12:34 Lipase 21 U/L (13-60) 05/02/24 12:34 Urine Color Yellow (Yellow) 05/02/24 15:20 Urine Appearance Clear (CLEAR) 05/02/24 15:20 Urine pH 6.5 (5-7) 05/02/24 15:20 Ur Specific [place] 1.027 (1.005-1.030) 05/02/24 15:20 Urine Protein Trace (Negative) A 05/02/24 15:20 Urine Glucose (UA) Negative (Normal) 05/02/24 15:20 Urine Ketones 1+ (Negative) H 05/02/24 15:20 Urine Blood Negative (Negative) 05/02/24 15:20 Urine Nitrate Negative (Negative) 05/02/24 15:20 Urine Bilirubin Negative (Negative) 05/02/24 15:20 Urine Urobilinogen 1.0 mg/dL (Negative) 05/02/24 15:20 Ur Leukocyte Esterase 1+ (Negative) A 05/02/24 15:20 Urine RBC 6-10 /hpf (0-2) 05/02/24 15:20 Urine WBC 0-5 /hpf (0-5) 05/02/24 15:20 Ur Squamous Epith Cells 6-10 /hpf (0-5) 05/02/24 15:20 Amorphous Sediment Not Reportable 05/02/24 15:20 Urine Bacteria 3+ /hpf (NONE) H 05/02/24 15:20 Hyaline Casts 1.65 /lpf 05/02/24 15:20 Procedures Performed Laparoscopic appendectomy Vitals Last Vital Signs Temp 98.7 F 05/02/24 18:41 Pulse 89 05/02/24 18:41 Resp 18 05/02/24 18:41 BP 106/69 05/02/24 18:41 Pulse Ox 97 05/02/24 18:41 O2 Del Method Room Air 05/02/24 18:41 Discharge Plan Discharge Patient Disposition: Home Condition: Stable Prescriptions: New hydrocodone-acetaminophen 7.5-325 mg tablet 1 tab PO Q6H PRN (Reason: pain) Qty: 20 0RF docusate sodium [Colace] 100 mg capsule 100 mg PO DAILY Qty: 14 0RF polyethylene glycol 3350 [Miralax] 17 gram/dose powder 17 g PO DAILY 7 Days Qty: 119 0RF Continued prenat.vits,bhavna,ynx-iibv-frnqx Tablet 1 tab PO DAILY Discharge Orders: Discharge Order (Routine); Ordered 05/02/24 Ordered By: Dat Flanagan Referrals: Dat Flanagan DO [Physician] - 2 weeks Discharge Diet: Advance as tolerated Discharge Activity: Resume usual activity Patient Instructions: Appendicitis (GEN) Activity Restrictions/Additional Instructions: Do not soak incisions underwater for 2 weeks. Shower regularly Discharge Attestations Time Spent in Discharge Care*: less than 30 min Quality Metrics Clinical Quality Measures [ No reported AMI, CVA or VTE this stay] Coding Level of Care Code Acute Code for [facility] Fwd Diagnoses Acute appendicitis K35.80
[2024-05-02] MEDS: amoxicillin-clav 875-125 mg Tablet 2 TAB PO (20:26)
[2024-05-02] MEDS: HYDROcodone-acetaminophen 7.5-325 mg Tablet 1 TAB PO ×2 (20:26)
[2024-05-02] MEDS: ondansetron 4 MG Tablet PO (20:54)
--- NOTE | 2024-05-02 21:00 | ANE.PACU2 ---
Inpatient post-anesthesia follow up: Airway intact: Yes Vital signs: Temperature 98.5 F Pulse Rate 82 Respiratory Rate 18 Blood Pressure 101/57 Pulse Oximetry 95 Oxygen Delivery Me thod Room Air Oxygen Flow Rate Fraction of Inspir ed Oxygen Hydration adequate: Yes Nausea and vomiting: No Pain level: 1 Mental status: Baseline
== END 2024-05-02 18:33 | disposition home or self-care (01) ==
LOC: ER 17:59 → OR 18:34
PROVIDERS: Emergency Provider Emergency Medicine; Visit Provider Surgery
PROC: 0DTJ4ZZ Resection of Appendix, Percutaneous Endoscopic Approach (ICD-10-PCS; CPT 44970; principal; 2024-05-02 19:00)
DX: K35.80 Unspecified acute appendicitis (principal)
CPT/HCPCS: 44970; 36415; 74177; 80053; 81001; 83690; 85025; 87086; 88304; J0131; J1100; J2270; J2405; J2543; J2704; J2710; J3010; J3490; Q0162